=== PATIENT | female | born 1965 ===

== ENCOUNTER 2018-04-30 15:25 | Emergency (ER) | payer SELFPAY ==
[2018-04-30 16:00] VITALS: BP 151/69; PULSE 59; RESP 16; TEMP 97.8; O2SAT 98
[2018-04-30] MEDS ORDERED: Lidocaine 5% Patch TD ONE (16:48)
--- NOTE | 2018-04-30 17:04 | C.PDOC ---
History Of Present Illness 53 y/o female, visiting from the ., presents to the ED for evaluation of left leg pain. Patient states she slipped on ice 1 week ago and was able to re-gain balance without falling. Now complains of pain to anterior left thigh. Denies any blunt trauma. There is no swelling or bruising. Patient complains of increasing difficulty bearing weight on the left leg. Additionally she has a rash on the left anterior thigh, which is burning and painful. No fevers or chills. Time Seen by Provider: 04/30/18 16:07 Chief Complaint (Nursing): Lower Extremity Problem/Injury History Per: Patient History/Exam Limitations: no limitations Onset/Duration Of Symptoms: Days Current Symptoms Are (Timing): Still Present Past Medical History Reviewed: Historical Data, Nursing Documentation, Vital Signs Vital Signs: Last Vital Signs Temp 97.8 F 04/30/18 15:58 Pulse 59 L 04/30/18 15:58 Resp 16 04/30/18 15:58 BP 151/69 H 04/30/18 15:58 Pulse Ox 98 04/30/18 15:58 Surgical History: Coronary Stent Family History: States: No Known Family Hx - Social History Hx Tobacco Use: No Hx Alcohol Use: No Hx Substance Use: No - Immunization History Hx Tetanus Toxoid Vaccination: No Hx Influenza Vaccination: No Hx Pneumococcal Vaccination: No Review Of Systems Except As Marked, All Systems Reviewed And Found Negative. Constitutional: Negative for: Fever, Chills Musculoskeletal: Positive for: Leg Pain (left anterior thigh). Negative for: Other (swelling) Skin: Positive for: Rash (to left leg). Negative for: Bruising Neurological: Negative for: Weakness, Numbness, Incoordination Physical Exam - Physical Exam Appears: Non-toxic, No Acute Distress Skin: Warm, Dry, Rash (vesicular rash running down the left anterior thigh) Head: Atraumatic, Normacephalic Eye(s): bilateral: Normal Inspection, PERRL, EOMI Oral Mucosa: Moist Neck: Normal ROM Chest: Symmetrical Cardiovascular: Rhythm Regular, No Murmur Respiratory: Normal Breath Sounds, No Accessory Muscle Use, Other (No respiratory distress) Gastrointestinal/Abdominal: Soft, No Tenderness, No Distention Extremity: Normal ROM, Tenderness (Minimal tenderness to the left anterior thigh), No Deformity, No Swelling Pulses: Left Dorsalis Pedis: Normal, Right Dorsalis Pedis: Normal Neurological/Psych: Oriented x3, Normal Motor, Normal Sensation Gait: Steady ED Course And Treatment O2 Sat by Pulse Oximetry: 98 (RA) Pulse Ox Interpretation: Normal Medical Decision Making Medical Decision Making: Impression: Herpes zoster Plan: Patient is stable for discharge home. Counseled regarding diagnosis of shingles, prescriptions provided. Disposition Counseled Patient/Family Regarding: Diagnosis, Need For Followup, Rx Given - Disposition Disposition: HOME/ ROUTINE Disposition Time: 17:30 Condition: STABLE Prescriptions: Ibuprofen [Motrin] 600 mg PO TID #15 tab Prednisone [Deltasone] 60 mg PO DAILY #12 tablet traMADol/Acetaminophen [Ultracet 37.5/325 mg] 1 tab PO HS PRN #6 tab PRN Reason: pain Instructions: Shingles (DC) Forms: [facility] (Chinese), Gen Discharge Inst Chinese - POA Present On Arrival: None - Clinical Impression Clinical Impression: Zoster - Scribe Statement The provider has reviewed the documentation as recorded by the Clau Fam Provider Attestation: All medical record entries made by the Clau were at my direction and personally dictated by me. I have reviewed the chart and agree that the record accurately reflects my personal performance of the history, physical exam, medical decision making, and the department course for this patient. I have also personally directed, reviewed, and agree with the discharge instructions and disposition.
== END 2018-04-30 17:38 | disposition home or self-care (01) ==
LOC: C.ER 15:25
DX: B02.9 Zoster without complications (principal)